=== PATIENT | female | born 1990 | race Caucasian/White ===

== ENCOUNTER 2023-12-29 20:45 | Emergency (ER) | payer MEDICAID, SELFPAY ==
[2023-12-29 20:56] VITALS: BP 130/84; PULSE 83; RESP 17; TEMP 36.8; O2SAT 98; BMI 22.6
[2023-12-29 22:10] VITALS: BP 172/113; PULSE 79; RESP 16; TEMP 36.6; O2SAT 100
--- NOTE | 2023-12-30 15:36 | ED.HEATRA ---
HPI - Head Injury General Chief complaint: Head Injury Stated complaint: head inj/neck pain Source: patient Mode of arrival: Ambulatory History of Present Illness HPI Narrative: Patient left withuot seeing provider Related Data Previous Rx's Medication Instructions Recorded epinephrine 0.3 mg/0.3 mL 0.3 mg (0.3 mL) IM ONCE #2 ea 10/08/23 injection, auto-injector (EpiPen) prednisone 20 mg tablet 40 mg (2 x 20 mg) PO DAILY #8 tabs 10/08/23 Allergies Allergy/AdvReac Type Severity Reaction Status Date / Time bee venom protein (honey bee) Allergy Severe Anaphylaxis Verified 12/29/23 16:47 ceftriaxone [From Rocephin] Allergy Intermediate Verified 12/29/23 16:47 Patient History Social History Smoking Status: Never smoker Smoking Status: Never smoker alcohol intake frequency: a few times a month Substance Use Type: marijuana Exam Initial Vital Signs Initial Vital Signs: Vital Signs Temperature 98.3 F 12/29/23 20:56 Pulse Rate 83 12/29/23 20:56 Respiratory Rate 17 12/29/23 20:56 Blood Pressure 130/84 12/29/23 20:56 Pulse Oximetry 98 12/29/23 20:56 Oxygen Delivery Method Room Air 12/29/23 20:56 Discharge Plan Departure Patient Disposition: Left Without Being Seen Clinical Impression: Patient left without being seen Prescriptions: No Action prednisone 20 mg tablet 40 mg PO DAILY Qty: 8 0RF epinephrine [EpiPen] 0.3 mg/0.3 mL auto-injector 0.3 mg IM ONCE Qty: 2 0RF Rx Instructions: as a single dose; may repeat once
== END 2023-12-30 01:00 | disposition left against medical advice (07) ==
PROVIDERS: Emergency Provider Emergency Medicine; PCP Family Medicine
CPT/HCPCS: 99281

== ENCOUNTER 2023-12-30 07:54 | Emergency (ER) | payer MEDICAID, SELFPAY ==
[2023-12-30 08:29] VITALS: BP 138/74; PULSE 81; RESP 18; TEMP 36.7; O2SAT 98; BMI 22.6
--- NOTE | 2023-12-30 11:21 | PC.NURSE ---
patient was called in the ER lobby to be placed in a room with no answer.
--- NOTE | 2023-12-30 11:35 | PC.NURSE ---
patient was called in the ER lobby to be placed in a room for the second time and no answer.
== END 2023-12-30 11:36 | disposition left against medical advice (07) ==
PROVIDERS: Emergency Provider Emergency Medicine; PCP Family Medicine
DX: M54.2 Cervicalgia (principal)
CPT/HCPCS: 99281

== ENCOUNTER → 2024-03-07 08:56 | Outpatient (CLI) | payer OTHER, MEDICAID, SELFPAY ==
--- NOTE | 2024-03-07 08:58 | DI.MRI.S_ITS ---
PROCEDURE: MR HEAD/BRAIN WO CON INDICATIONS: subdural hematoma s/p head injury TECHNIQUE: Noncontrast axial T1 spin echo, axial T2 fast spin echo, sagittal and axial FLAIR, coronal T2 fast spin echo, axial gradient echo, axial diffusion and ADC through the brain. COMPARISON: None. FINDINGS: Image quality: Diagnostic, with note made of motion artifact. CSF Spaces: Basal cisterns are patent. No extra-axial fluid collections. Ventricles are normal in size and shape. Brain: No intracranial masses or hemorrhage. Krishna/white matter interface is normal. Brainstem appears normal. Diffusion-weighted images demonstrate no acute infarct. No chronic ischemic insults. Normal intravascular flow voids are present. Skull and face: Calvarium has normal marrow signal. Orbits appear normal. Sinuses: Sinuses and mastoids are clear. IMPRESSION: No intracranial hemorrhage is detected on this study, to the limits of MRI. Dictated by: Gamal Pelaez M.D. on 03/07/2024 at 8:41 Approved by: Gamal Pelaez M.D. on 03/07/2024 at 8:43
== END ==
LOC: MRI 08:57
PROVIDERS: PCP Family Medicine; Referring Provider Family Medicine; Visit Provider Family Medicine
DX: S06.5X0D Traumatic subdural hemorrhage without loss of consciousness, subsequent encounter (principal); S06.0X0A Concussion without loss of consciousness, initial encounter; Z87.828 Personal history of other (healed) physical injury and trauma
CPT/HCPCS: 70551

== ENCOUNTER → 2024-07-29 14:36 | Outpatient (CLI) | payer OTHER, SELFPAY ==
[2024-07-29 19:00] LABS: Add Manual Diff / Slide Review NO; Basophils Absolute Auto 0 /uL (0-100); Basophils Percent Auto 0.3 % (0-2); Eosinophils Absolute Auto 200 /uL (0-450); Eosinophils Percent Auto 1.8 % (2-4); Hematocrit 38.7 % (36-46); Hemoglobin 13.2 g/dL (12.0-16.0); Lymphocytes Absolute Auto 3200 /uL (1100-4500); Lymphocytes Percent Auto 38.8 % (25-40); Mean Corpuscular HGB Conc 34.1 % (30-36); Mean Corpuscular Hemoglobin 30.1 PG (26-34); Mean Corpuscular Volume 88.3 fL (80-100); Monocytes Absolute Auto 600 /uL (0-900); Monocytes Percent Auto 7.2 % (3-14); Neutrophils Absolute Auto 4300 /uL (1500-7000); Neutrophils Percent Auto 51.9 % (50-75); Platelet Count 282 X10^3/uL (150-400); Red Blood Cell Count 4.38 X10^6/uL (4.0-5.2); Red Cell Distribution Width 13.2 % (11.6-14.8); White Blood Cell Count 8.4 X10^3/uL (4.5-11.0)
[2024-07-29 19:09] LABS: Alanine Aminotransferase 15 IU/L (<35); Albumin 4.2 g/dL (3.5-5.0); Albumin Globulin Ratio 1.6 (1.0-2.8); Alkaline Phosphatase 50 U/L (38-126); Aspartate Aminotransferase 24 IU/L (14-36); BUN Creatinine Ratio 17.1 (6-22); Bilirubin Total 0.1 mg/dL (0.2-1.3); Blood Urea Nitrogen 12 mg/dL (7-17); Calcium 9.6 mg/dL (8.4-10.2); Carbon Dioxide 29 mmol/L (22-32); Chloride 102 mmol/L (98-107); Estimated Glomerular Filt Rate > 60 mL/min (>60); Globulin 2.6 g/dL (1.7-4.1); Glucose 85 mg/dL (70-100); HEMOLYSIS < 15 (0-50); Potassium 4.5 mmol/L (3.4-5.1); Sodium 137 mmol/L (137-145); Total Protein 6.8 g/dL (6.3-8.2)
== END ==
PROVIDERS: PCP Family Medicine; Visit Provider Physician Assistant Medical
DX: F31.30 Bipolar disorder, current episode depressed, mild or moderate severity, unspecified (principal)
CPT/HCPCS: 80053; 84443; 85025